=== PATIENT | female | born 1940 | race Caucasian/White ===

== ENCOUNTER 2017-07-16 21:28 | Inpatient (IN) | payer OTHER ==
[~2017-07-16] VITALS: Ht 160 cm; Wt 114.4 kg
[~2017-07-16 21:28] MED LIST: ALENDRONATE SOD70 MG PO; CARVEDILOL6.25 MG PO; CIPRO500 MG PO; CODEINE SULFATE30 MG PO; ELIQUIS2.5 MG PO; GLIPIZIDE10 MG PO; HYGROTON25 MG PO; IRON325 M1 PO; LIDODERM 5% P1 PATCH TD; LISINOPRIL40 MG PO; METFORMIN HCL1000 MG PO; NOVOFINE NEE1 NEEDLE MC; NOVOLOG PE100 UNITS/ SC; PRAVASTATIN SOD40 MG PO; SKELAXIN800 MG PO; WARFARIN SODIU2.5 MG PO; ZANTAC150 MG PO
[2017-07-17 06:14] VITALS: BP 190/74
[2017-07-17 06:15] LABS: POINT-OF-CARE METER ID UU14174212
[2017-07-17 07:08] LABS: INTER. NORMALIZED RATIO 1.2; PROTHROMBIN TIME 13.7 SEC (10.2-12.9)
[2017-07-17 09:49] LABS: POINT-OF-CARE METER ID UU13113675; POINT-OF-CARE USER ID 515036437
[2017-07-17 10:50] VITALS: BP 188/74
[2017-07-17 11:36] LABS: POINT-OF-CARE METER ID UU13113712
[2017-07-17 12:45] VITALS: BP 161/73
[2017-07-17 16:05] VITALS: BP 193/85
[2017-07-17 16:30] LABS: POINT-OF-CARE METER ID UU13113712
[2017-07-17 16:36] VITALS: BP 188/76
[2017-07-17 19:52] VITALS: BP 210/91
[2017-07-17 22:01] LABS: POINT-OF-CARE METER ID UU13113712
[2017-07-18] VITALS (7 sets, daily range): BP systolic 162–193; BP diastolic 70–89
[2017-07-18 05:09] LABS: HEMATOCRIT 35.2 % (36.0-46.0); MCV 94.9 FL (83-99)
[2017-07-18 05:27] LABS: CHLORIDE 104 mEq/L (99-109); POTASSIUM 3.6 mEq/L (3.7-5.4); SODIUM 140 mEq/L (136-147)
[2017-07-18 05:29] LABS: GLUCOSE 171 mg/dL (70-99)
[2017-07-18 05:30] LABS: ANION GAP 8 MEQ/L (2-14)
[2017-07-18 05:33] LABS: GFR ESTIMATE (CALCULATED) > 59 mL/min/
[2017-07-18 05:34] LABS: UREA NITROGEN (BUN) 19 mg/dL (9-23)
[2017-07-18 08:13] LABS: POINT-OF-CARE METER ID UU13113712
[2017-07-18 11:28] LABS: POINT-OF-CARE METER ID UU13113712
[2017-07-18 16:29] LABS: POINT-OF-CARE METER ID UU13113712
[2017-07-18 21:51] LABS: POINT-OF-CARE METER ID UU13113712
[2017-07-19 04:20] VITALS: BP 167/69
[2017-07-19 05:41] LABS: HEMATOCRIT 35.3 % (36.0-46.0); MCV 95.4 FL (83-99)
[2017-07-19 06:23] LABS: ANION GAP 9 MEQ/L (2-14); CHLORIDE 100 MEQ/L (99-109); GFR ESTIMATE (CALCULATED) > 59 mL/min/; POTASSIUM 3.9 MEQ/L (3.7-5.4); SAMPLE HEMOLYSIS CHECK 0; SAMPLE ICTERIC CHECK 0; SAMPLE LIPEMIA CHECK 0; SODIUM 137 MEQ/L (136-147); UREA NITROGEN (BUN) 18 mg/dL (9-23)
[2017-07-19 06:24] LABS: GLUCOSE 260 mg/dL (70-99)
[2017-07-19 07:26] LABS: POINT-OF-CARE METER ID UU13113712
[2017-07-19 08:00] VITALS: BP 168/71
[2017-07-19 11:35] LABS: POINT-OF-CARE METER ID UU13113712
[2017-07-19 12:30] VITALS: BP 146/82
[2017-07-19 15:57] VITALS: BP 180/73
[2017-07-19 16:23] LABS: POINT-OF-CARE METER ID UU13113712
[2017-07-19 20:07] VITALS: BP 178/76
[2017-07-19 21:44] LABS: POINT-OF-CARE METER ID UU13113712
[2017-07-20 00:30] VITALS: BP 112/50
[2017-07-20 04:18] VITALS: BP 132/59
[2017-07-20 07:40] LABS: POINT-OF-CARE METER ID UU13113712
[2017-07-20 08:35] VITALS: BP 131/60
[2017-07-20] MEDS ORDERED: OXYCODONE HCL5 MG PO (08:48)
== END 2017-07-20 11:26 | DRG 470 ==
LOC: 2SOUTH → ENRESERV 21:28 → 2SOUTH 07-17 05:30 → 3WEST 07-17 05:30 → 2SOUTH 07-17 11:52 → 3WEST 07-20 11:26
PROVIDERS: Orthopaedic Surgery; Physician Assistant Surgical
PROC: 0SRC0J9 Replacement of Right Knee Joint with Synthetic Substitute, Cemented, Open Approach (ICD-10-PCS; principal; 2017-07-17)
DX: M17.11 Unilateral primary osteoarthritis, right knee (principal); I10 Essential (primary) hypertension; E11.9 Type 2 diabetes mellitus without complications; M06.9 Rheumatoid arthritis, unspecified; K74.60 Unspecified cirrhosis of liver; I48.2 Chronic atrial fibrillation; K21.9 Gastro-esophageal reflux disease without esophagitis; F41.9 Anxiety disorder, unspecified; E66.9 Obesity, unspecified; E87.6 Hypokalemia; Z83.3 Family history of diabetes mellitus; Z79.4 Long term (current) use of insulin; Z68.41 Body mass index [BMI] 40.0-44.9, adult
CPT/HCPCS: 71010; 80048; 82948; 85014; 85018; 85610; C1713; J0131; J0690; J1815; J1885; J2250; J3010; J7050; J7120; L1820; Q0175; S0020

== ENCOUNTER 2018-03-14 13:25 | Emergency (ER) | payer OTHER ==
[~2018-03-14] VITALS: Ht 160 cm; Wt 108.7 kg
[~2018-03-14 13:25] MED LIST changes: +OXYCODONE HCL5 MG PO
[2018-03-14 14:41] LABS: HEMATOCRIT 35.8 % (36.0-46.0); HEMOGLOBIN 12.3 G/DL (11.9-15.5); MCH 33.4 PG (29.0-34.0); MCHC 34.4 G/DL (30.0-36.0); MCV 97.3 FL (83-99); PLATELET COUNT 89 K/uL (156-360); RBC DIS.WIDTH-CV 13.2 % (11.8-14.6); RBC DIS.WIDTH-SD 46.8 % (39-53); RED BLOOD COUNT 3.68 M/uL (3.80-5.20); WHITE BLOOD COUNT 3.8 K/uL (4.1-10.2)
[2018-03-14 14:50] LABS: ALBUMIN 3.8 g/dL (3.2-4.8); CHLORIDE 107 mEq/L (99-109); POTASSIUM 4.2 mEq/L (3.7-5.4); SODIUM 142 mEq/L (136-147)
[2018-03-14 14:53] LABS: GLUCOSE 78 mg/dL (70-99); TOTAL PROTEIN 7.2 g/dL (6.4-8.3)
[2018-03-14 14:54] LABS: TOTAL BILIRUBIN 1.4 mg/dL (0.0-1.0)
[2018-03-14 14:56] LABS: ALKALINE PHOSPHATASE 58 IU/L (3-129); GFR ESTIMATE (CALCULATED) 57 mL/min/
[2018-03-14 14:57] LABS: UREA NITROGEN (BUN) 32 mg/dL (9-23)
[2018-03-14 14:58] LABS: AST (GOT) 38 IU/L (2-34)
[2018-03-14 14:59] LABS: ALT (GPT) 19 IU/L (3-49)
[2018-03-14 15:00] LABS: APPEARANCE CLEAR ((CLEAR)); BILIRUBIN NEGATIVE; BLOOD NEGATIVE; COLOR YELLOW ((YELLOW)); GLUCOSE (STRIP) NEGATIVE; KETONES NEGATIVE; LEUKOCYTES NEGATIVE; NITRITE NEGATIVE; PROTEIN (STRIP) 100; SPECIFIC GRAVITY 1.017 (1.000-1.030); UROBILINOGEN 0.2 MG/DL (0.2-1.0)
[2018-03-14 15:05] LABS: BACTERIA NONE SEEN /HPF; EPITHELIAL CELLS RARE /HPF; HYALINE CASTS 0-5 /LPF; MUCUS NONE SEEN /LPF; RED BLOOD CELLS 0-5 /HPF (0-5); UCUL ADDED? NO; WHITE BLOOD CELLS 0-5 /HPF (0-5)
[2018-03-14] MEDS ORDERED: LASIX40 MG PO (16:29)
[2018-03-14 16:42] VITALS: BP 170/84
== END 2018-03-14 16:44 | disposition home or self-care (01) ==
LOC: EME 13:25
PROVIDERS: Nurse Practitioner Family
DX: R06.00 Dyspnea, unspecified (principal); I50.9 Heart failure, unspecified; I48.91 Unspecified atrial fibrillation; Z79.01 Long term (current) use of anticoagulants; E11.9 Type 2 diabetes mellitus without complications; Z79.84 Long term (current) use of oral hypoglycemic drugs; K74.60 Unspecified cirrhosis of liver; Z87.891 Personal history of nicotine dependence
CPT/HCPCS: 71046; 80053; 81003; 83880; 85027; 93005; 99281; 99284

== ENCOUNTER → 2018-03-30 | Outpatient (CLI) | payer OTHER ==
[~2018-03-30] MED LIST changes: +LASIX40 MG PO
== END | disposition home or self-care (01) ==
LOC: EKG 12:08
DX: I51.7 Cardiomegaly (principal); I05.0 Rheumatic mitral stenosis; I05.1 Rheumatic mitral insufficiency; I07.1 Rheumatic tricuspid insufficiency; I06.0 Rheumatic aortic stenosis; I09.89 Other specified rheumatic heart diseases; I27.20 Pulmonary hypertension, unspecified
CPT/HCPCS: 93306

== ENCOUNTER 2018-05-16 07:25 | Emergency (ER) | payer OTHER ==
[~2018-05-16] VITALS: Ht 172.7 cm; Wt 112.3 kg
[2018-05-16 08:00] LABS: HEMATOCRIT 38.6 % (36.0-46.0); HEMOGLOBIN 13.7 G/DL (11.9-15.5); MCHC 35.5 G/DL (30.0-36.0); PLATELET COUNT 87 K/uL (156-360); RBC DIS.WIDTH-CV 12.8 % (11.8-14.6); RBC DIS.WIDTH-SD 43.9 % (39-53); RED BLOOD COUNT 4.15 M/uL (3.80-5.20); WHITE BLOOD COUNT 4.2 K/uL (4.1-10.2)
[2018-05-16 08:35] LABS: ALBUMIN 2.9 G/DL (3.2-4.8); ALKALINE PHOSPHATASE 49 IU/L (3-129); ALT (GPT) 13 IU/L (3-49); AST (GOT) 41 IU/L (2-34); CHLORIDE 103 MEQ/L (99-109); CREATININE 0.7 MG/DL (0.6-1.3); GFR ESTIMATE (CALCULATED) > 59 mL/min/; GLUCOSE 128 mg/dL (70-99); POTASSIUM 3.2 MEQ/L (3.7-5.4); SODIUM 142 MEQ/L (136-147); TOTAL BILIRUBIN 1.9 MG/DL (0.0-1.0); TOTAL PROTEIN 5.8 G/DL (6.4-8.3); UREA NITROGEN (BUN) 9 mg/dL (9-23)
[2018-05-16] MEDS ORDERED: POTASSIUM CHLO10 ME4 PO (11:26)
[2018-05-16 13:42] VITALS: BP 160/63
[2018-05-18] MEDS ORDERED: CODEINE SULFATE30 MG PO (15:34)
[2018-05-18] MEDS ORDERED: CLONIDINE HCL0.1 MG PO (15:34)
[2018-05-18] MEDS ORDERED: ZOLPIDEM TARTRA10 MG PO (15:34)
[2018-05-18] MEDS ORDERED: POTASSIUM CHLO10 ME3 PO (15:35)
[2018-05-18] MEDS ORDERED: MECLIZINE HCL25 MG PO (15:35)
== END 2018-05-16 13:42 | disposition home or self-care (01) ==
LOC: EME 07:25
PROVIDERS: Nurse Practitioner Family
DX: R10.33 Periumbilical pain (principal); E87.6 Hypokalemia; F43.9 Reaction to severe stress, unspecified; E11.9 Type 2 diabetes mellitus without complications; Z79.84 Long term (current) use of oral hypoglycemic drugs; K74.60 Unspecified cirrhosis of liver; Z87.891 Personal history of nicotine dependence
CPT/HCPCS: 71046; 74018; 80053; 83880; 85027; 93005; 99281; 99285

== ENCOUNTER 2018-05-21 09:20 | Day surgery (SDC) | payer OTHER ==
[~2018-05-21] VITALS: Ht 160 cm; Wt 114.0 kg
[~2018-05-21 09:20] MED LIST changes: +CLONIDINE HCL0.1 MG PO; +MECLIZINE HCL25 MG PO; +POTASSIUM CHLO10 ME3 PO; +POTASSIUM CHLO10 ME4 PO; +ZOLPIDEM TARTRA10 MG PO
[2018-05-21 11:56] LABS: COMMENTS - BLOOD GASES C+; SITE PA
[2018-05-21 11:57] LABS: BASE EXCESS 4.6 mEq/L (-3 to +3); BICARBONATE 30.4 mEq/L (22-26); CARBOXY HGB 2.6 % (0-5); METHEMOGLOBIN 0.7 % (0-1.5); PCO2 49 mm Hg (35-45); PO2 43 mm Hg (80-100)
[2018-05-21 17:14] VITALS: BP 192/88
[2018-05-21 19:23] VITALS: BP 183/92
[2018-05-21 22:48] VITALS: BP 136/68
[2018-05-22 03:46] VITALS: BP 154/70
[2018-05-22 08:45] VITALS: BP 191/73
[2018-05-22 12:29] VITALS: BP 199/84
[2018-05-22 12:43] VITALS: BP 148/65
== END 2018-05-22 14:15 | disposition home or self-care (01) ==
LOC: CATH 09:20 → 2SOUTH 12:00 → 4EAST 12:00 → ENRESERV 13:02 → 4EAST 16:56
PROVIDERS: Internal Medicine Cardiovascular Disease
PROC: 4A023N6 Measurement of Cardiac Sampling and Pressure, Right Heart, Percutaneous Approach (ICD-10-PCS; principal; 2018-05-21)
DX: I27.20 Pulmonary hypertension, unspecified (principal); I27.21 Secondary pulmonary arterial hypertension; I35.0 Nonrheumatic aortic (valve) stenosis; J44.9 Chronic obstructive pulmonary disease, unspecified; I48.0 Paroxysmal atrial fibrillation; Z79.01 Long term (current) use of anticoagulants; I10 Essential (primary) hypertension; E78.4 Other hyperlipidemia; E66.9 Obesity, unspecified; Z68.41 Body mass index [BMI] 40.0-44.9, adult; R01.1 Cardiac murmur, unspecified; R60.0 Localized edema
CPT/HCPCS: 36600; 82948; 94799; C1769; C1894; G0378; J0360; J2250; J3010; J7040

== ENCOUNTER 2018-06-01 10:10 | Emergency (ER) | payer OTHER ==
[~2018-06-01] VITALS: Ht 160 cm; Wt 112.0 kg
[2018-06-01 11:34] LABS: BASOPHIL (%) 2.5 % (0-1); BASOPHIL COUNT 0.1 K/uL (0-0.1); EOSINOPHIL (%) 2.5 % (0-5); EOSINOPHIL COUNT 0.1 K/uL (0-0.3); HEMATOCRIT 39.5 % (36.0-46.0); HEMOGLOBIN 13.4 G/DL (11.9-15.5); IMMATURE GRANULOCYTE (%) 0.3 % (0.0-0.7); LYMPHOCYTE (%) 38.2 % (15-42); LYMPHOCYTE COUNT 1.2 K/uL (1.0-2.8); MCH 32.6 PG (29.0-34.0); MCHC 33.9 G/DL (30.0-36.0); MCV 96.1 FL (83-99); MONOCYTE (%) 10.2 % (3-12); MONOCYTE COUNT 0.3 K/uL (0-0.8); NEUTROPHIL (%) 46.3 % (45-76); NEUTROPHIL COUNT 1.5 K/uL (1.8-6.4); PLATELET COUNT 70 K/uL (156-360); RBC DIS.WIDTH-CV 12.9 % (11.8-14.6); RED BLOOD COUNT 4.11 M/uL (3.80-5.20); WHITE BLOOD COUNT 3.2 K/uL (4.1-10.2)
[2018-06-01 11:36] LABS: INTER. NORMALIZED RATIO 1.6
[2018-06-01 11:38] LABS: PTT 35.5 SEC (25-37)
[2018-06-01 11:41] LABS: CHLORIDE 106 mEq/L (99-109); POTASSIUM 3.9 mEq/L (3.7-5.4); SODIUM 142 mEq/L (136-147)
[2018-06-01 11:42] LABS: GLUCOSE 106 mg/dL (70-99)
[2018-06-01 11:46] LABS: CREATININE 0.8 mg/dL (0.6-1.3); GFR ESTIMATE (CALCULATED) > 59 mL/min/
[2018-06-01 11:47] LABS: UREA NITROGEN (BUN) 9 mg/dL (9-23)
[2018-06-01 12:17] VITALS: BP 178/58
== END 2018-06-01 12:18 | disposition home or self-care (01) ==
LOC: EME 10:10
PROVIDERS: Nurse Practitioner Family
DX: L76.21 Postprocedural hemorrhage of skin and subcutaneous tissue following a dermatologic procedure (principal); Y83.8 Other surgical procedures as the cause of abnormal reaction of the patient, or of later complication, without mention of misadventure at the time of the procedure; D69.6 Thrombocytopenia, unspecified; Z79.01 Long term (current) use of anticoagulants; J45.909 Unspecified asthma, uncomplicated; K74.60 Unspecified cirrhosis of liver; Z87.891 Personal history of nicotine dependence
CPT/HCPCS: 80048; 85025; 85610; 85730; 99281; 99283